=== PATIENT | female | born 1925 | race Caucasian/White ===

== ENCOUNTER 2017-02-07 22:09 | Inpatient (IN) | payer MEDICARE, BC ==
[~2017-02-07] VITALS: Ht 170.2 cm; Wt 65.5 kg
--- NOTE | 2017-02-09 07:15 | HP ---
ADMIT: 02/08/2017 RM/LOC: 421 [facility] MR#: [id number] [address] [place] [address] History and Physical SEX: F AGE: 89 : 1925 DATE OF SERVICE: CHIEF COMPLAINT: Weakness. HISTORY OF PRESENT ILLNESS: The patient is a pleasant, elderly, demented 89- year-old female, well known to me from clinic. Normally resides over at [facility]. She, reportedly, last evening got more lethargic. Could not really bear her weight which is very unusual for her. Just weak in general. No fevers. No chills. Some diarrhea recently. Transferred to the emergency room. The patient currently denies any chest pain. No shortness of breath. She is a very poor historian and very unreliable in the past. Does not appear distressed however. PAST MEDICAL HISTORY: 1. Severe advanced dementia. 2. Osteoarthritis. 3. Coronary artery disease. 4. CHF. 5. COPD. 6. Thoracic aneurysm history. 7. Pacemaker. 8. Hypertension. 9. Hyperlipidemia. FAMILY HISTORY: Not obtainable by the patient. Not obtainable by record. SOCIAL HISTORY: Lives over at [facility]. No tobacco abuse history. MEDICATIONS: She is on: 1. Tylenol. 2. ProAir. 3. Simvastatin. 4. Seroquel. 5. Lisinopril. 6. Furosemide. 7. Famotidine. 8. Aspirin. 9. Carvedilol. 10.Trazodone. 11.MiraLax. 12.Imodium. 13.DuoNeb. Please see list for full details. REVIEW OF SYSTEMS: As per HPI. Really not obtainable by the patient. Very unreliable. PHYSICAL EXAMINATION: GENERAL: She is alert and oriented x3. No acute ADMIT: 02/08/2017 RM/LOC: 421 [facility] MR#: [id number] [address] [place] [address] History and Physical SEX: F AGE: 89 : 1925 distress. Appears more tired than usual. Very conversational, but does not really track few conversation at all. Confabulates somewhat. HEENT: Normocephalic, atraumatic. Pupils are equal, round, and reactive to light and accommodation. Extraocular muscles intact. Very dry mucous membranes. NECK: No lymphadenopathy. Soft, supple. Trachea midline. LUNGS: Clear to auscultation bilaterally. No wheezes, rales, or rhonchi. HEART: Regular rate and rhythm. No murmurs, rubs, or gallops. ABDOMEN: Soft, nontender, nondistended. Bowel sounds present. EXTREMITIES: No cyanosis, clubbing, or edema. MUSCULOSKELETAL: With 5/5 strength in all four extremities. NEUROLOGICAL: No focal deficits noted. Cranial nerves II through XII grossly intact. SKIN: No rashes noted. Dry. Poor skin turgor. LABORATORY AND X-RAY DATA: Her EKG looks okay. Paced rhythm. No acute findings. Creatinine 1.6 with a baseline of less than 1. White count 12.2, hemoglobin 10.4, platelets 241. Potassium 4.2. UA shows nitrites and leukocytes positive. Cultures pending. ASSESSMENT: 1. Urinary tract infection. 2. Dehydration. 3. Acute kidney injury. 4. Severe dementia. 5. Congestive heart failure history without acute exacerbation, systolic. 6. Atrial fibrillation history. 7. Diarrhea. PLAN: We will hydrate her up, give her antibiotics for UTI. Check her for C. diff. I think she is going to become a slow to recovery given her age and comorbidities. Encourage more oral intake. Donovan Olmos MD/ gage JOB #: [id number] CC: Donovan Olmos, Attending Physician Donovan Olmos, Family Physician
--- NOTE | 2017-02-10 07:45 | DS ---
ADMIT: 02/08/2017 RM/LOC: 421 [facility] MR#: [id number] [address] [place] [address] Discharge Summary SEX: F AGE: 89 : 1925 ADMISSION DATE: 02/08/2017 DISCHARGE DATE: 02/09/2017 CONSULTATIONS: None. PROCEDURES: None. FINAL DIAGNOSES: 1. E (Escherichia) coli UTI (urinary tract infection). 2. Acute kidney injury. 3. History of chronic systolic heart failure. 4. Severe dementia. 5. COPD (chronic obstructive pulmonary disease) with acute exacerbation. 6. History of atrial fibrillation. REASON FOR ADMISSION: The patient is an 89-year-old female, who normally resides over at a memory care facility who had a dramatic worsening lethargy. Admitted via the ER. HOSPITAL COURSE: The patient was admitted. Aggressively rehydrated. Started on antibiotics for UTI. She had some diarrhea as an outpatient. This was not an issue while inpatient. Slowly and steadily improved. Safe and stable for discharge back to memory care unit. DISCHARGE INSTRUCTIONS: Please see discharge MAR, which I have reviewed. Essentially, will be on her home medications. We will hold her bowel regimen for 4 days. We will give her Macrobid 100 mg p.o. b.i.d. for 7 days. Follow up with me in clinic in 1-2 weeks. Donovan Olmos MD/ aislinn JOB #: [id number] CC: Donovan Olmos MD, Attending Physician Donovan Olmos MD, Family Physician
[2017-02-10] MEDS ORDERED: SEROQUEL25 MG PO (13:34)
[2017-02-10] MEDS ORDERED: DESYREL-DPS50 MG PO (13:34)
[2017-02-10] MEDS ORDERED: ASA325 MG PO (13:34)
[2017-02-10] MEDS ORDERED: PEPCID DPS20 MG PO (13:34)
[2017-02-10] MEDS ORDERED: LASIX DPS40 MG PO (13:34)
[2017-02-10] MEDS ORDERED: COREG25 MG PO (13:34)
[2017-02-10] MEDS ORDERED: ZESTRIL DPS2.5 MG PO (13:34)
[2017-02-10] MEDS ORDERED: PROAIR HFA8.5 GM IH (13:35)
[2017-02-10] MEDS ORDERED: ZOCOR DPS20 MG PO (13:35)
[2017-02-10] MEDS ORDERED: TYLENOL EXTRA500 M1 PO ×2 (13:35→13:36)
[2017-02-10] MEDS ORDERED: IMODIUM DPS2 MG PO (13:35)
[2017-02-10] MEDS ORDERED: DUONEB DPS3 ML IH (13:35)
[2017-02-10] MEDS ORDERED: COLACE-DPS100 MG PO (13:36)
[2017-02-10] MEDS ORDERED: MIRALAX PACKET17 GM PO (13:36)
[2017-02-10] MEDS ORDERED: MACROBID100 MG PO (13:36)
[2017-02-10] MEDS ORDERED: ULTRAM DPS50 MG PO (13:36)
--- NOTE | 2017-02-16 07:32 | ER ---
ADMIT: 02/08/2017 RM/LOC: 421 [facility] MR#: [id number] [id number] [address] [place] [address] Emergency Room Report SEX: F AGE: 89 : 1925 DATE: 02/07/2017 CHIEF COMPLAINT: Vomiting, diarrhea, and low blood pressure. HISTORY OF PRESENT ILLNESS: The patient is an 89-year-old female, who presents by EMS from [facility] where she is a patient there with dementia. They state that normally she is in no assist or minimal assist, but today, she has been having diarrhea and had an episode of vomiting this evening. Shortly after she vomited, she became significantly less responsive. They checked her blood pressure and the report was that was 40/30. I did call EMS. At that time EMS came, the patient was much more alert and awake, and the blood pressure was improved. The patient has no complaints to me when I talk to her in the Emergency Department, but she is a quite poor historian and is unreliable due to her dementia. PAST MEDICAL HISTORY: Dementia, COPD, atrial fibrillation, apparently some CHF. MEDICATIONS: See nurse's note. ALLERGIES: CODEINE. SOCIAL HISTORY: She has had a long term. Denies smoking, drug, or alcohol use. PHYSICAL EXAMINATION: VITAL SIGNS: Blood pressure is 95/55, heart rate 68, respirations 18, temp 96.5, sats 98% on room air. See T-sheet. LABORATORY DATA: White count is 12.4, hemoglobin of 10.4. Chemistries; BUN of 31, glucose 143, and creatinine 1.6. Urinalysis shows 1+ leukocyte esterase, positive nitrites, 6 white blood cells. EKG shows rate of 62 with a ADMIT: 02/08/2017 RM/LOC: 421 [facility] MR#: [id number] [address] [address] [place] [address] Emergency Room Report SEX: F AGE: 89 : 1925 paced rhythm and a left bundle. EMERGENCY DEPARTMENT COURSE: The patient arrived. She was slightly hypotensive. We went ahead and got some IV fluids going to the patient, received nearly 2 L of fluids while in the Emergency Department. We also gave the patient antibiotics for what looks to be urinary tract infection. The patient did not appear to be in any distress. We did try to get her up, and she was able to get up with some assistance, but one of the staff members who works at her facility was here and noted that she does not require essentially any assistance to get up normally. The patient remained afebrile here and did not appear septic. We did go ahead and plan to keep her with a diagnosis of urinary tract infection, hypotension, and dementia. Loc Milan MD/ gage JOB #: [id number] CC: Donovan Olmos MD, Attending Physician Donovan Olmos MD, Family Physician
== END 2017-02-09 10:51 | disposition home or self-care (01) | DRG 690 ==
LOC: ER 22:09 → 4PCU 02-08 00:29
PROVIDERS: ADMIT Internal Medicine
DX: N39.0 Urinary tract infection, site not specified (principal); N17.9 Acute kidney failure, unspecified; J44.1 Chronic obstructive pulmonary disease with (acute) exacerbation; F03.90 Unspecified dementia, unspecified severity, without behavioral disturbance, psychotic disturbance, mood disturbance, and anxiety; E86.0 Dehydration; I50.22 Chronic systolic (congestive) heart failure; I48.91 Unspecified atrial fibrillation; I11.0 Hypertensive heart disease with heart failure; B96.20 Unspecified Escherichia coli [E. coli] as the cause of diseases classified elsewhere; I25.10 Atherosclerotic heart disease of native coronary artery without angina pectoris; E78.5 Hyperlipidemia, unspecified; M19.90 Unspecified osteoarthritis, unspecified site; Z79.82 Long term (current) use of aspirin; Z95.0 Presence of cardiac pacemaker; Z66 Do not resuscitate